=== PATIENT | male | born 1975 | race Caucasian/White ===

== ENCOUNTER 2024-01-04 19:43 | Outpatient (REF) | payer BC, SELFPAY ==
[2024-01-04 20:55] LABS: ALT 46 U/L (16-63); AST 25 U/L (15-37); Albumin 4.3 g/dL (3.4-5.0); Alkaline Phosphatase 51 U/L (46-116); Anion Gap 10.8 mmol/L (3-11); BUN 14 mg/dL (7-18); Bilirubin, Total 0.71 mg/dL (0.2-1.0); CO2 26.2 mmol/L (21.0-32.0); CREATININE 0.9 mg/dL (0.70-1.30); Calcium 9.7 mg/dL (8.5-10.1); Calculated LDL 109 mg/dL (<100); Chloride 106 mmol/L (98-107); Cholesterol 192 mg/dL (<200); Estimated GFR 106.01 (mL/min/1.73m2); Glucose 93 mg/dL (74-106); HDL Cholesterol 57 mg/dL (40-60); Potassium 3.6 mmol/L (3.5-5.1); Sodium 143 mmol/L (136-145); Total Protein 7.7 g/dL (6.4-8.2); Triglyceride 133 mg/dL (<150)
[2024-01-04 21:43] LABS: Hemoglobin A1C 5.1 % (<5.7)
== END 2024-01-04 19:44 | disposition home or self-care (01) ==
LOC: NCHCN 19:43
PROVIDERS: Visit Provider Nurse Practitioner Family
DX: E66.9 Obesity, unspecified (principal); Z13.220 Encounter for screening for lipoid disorders
CPT/HCPCS: 80053; 80061; 83036

== ENCOUNTER 2025-01-09 18:33 | Outpatient (REF) | payer OTHER, SELFPAY ==
[2025-01-09 21:55] LABS: ALT 45 U/L (16-63); AST 24 U/L (15-37); Albumin 4.7 g/dL (3.4-5.0); Alkaline Phosphatase 42 U/L (46-116); Anion Gap 10.0 mmol/L (3-11); BUN 11 mg/dL (7-18); Bilirubin, Total 0.8 mg/dL (0.2-1.0); CO2 29.0 mmol/L (21.0-32.0); Calcium 9.6 mg/dL (8.5-10.1); Calculated LDL 140 mg/dL (<100); Chloride 101 mmol/L (98-107); Cholesterol 220 mg/dL (<200); Estimated GFR 92.84 (mL/min/1.73m2); Glucose 90 mg/dL (74-106); HDL Cholesterol 69 mg/dL (>or=40); Potassium 3.5 mmol/L (3.5-5.1); Sodium 140 mmol/L (136-145); Total Protein 8.3 g/dL (6.4-8.2); Triglyceride 59 mg/dL (<150)
[2025-01-09 22:56] LABS: COMMENT (LAB VIEW ONLY) 33.06 mg/dL; Microalb ug/mg Crea 8.2 ug/mg Cr
[2025-01-10 18:59] LABS: PSA, Screening 0.9 ng/mL (<=2.5)
[2025-01-10 19:41] LABS: HIV-1/2 Ag & Ab Screen Negative (Negative)
[2025-01-10 19:44] LABS: Hepatitis C Ab w Rflx HCV PCR Negative (Negative)
== END 2025-01-09 18:34 | disposition home or self-care (01) ==
LOC: NCHCN 18:33
PROVIDERS: PCP Nurse Practitioner Family; Visit Provider Nurse Practitioner Family
DX: I10 Essential (primary) hypertension (principal); Z11.4 Encounter for screening for human immunodeficiency virus [HIV]; Z12.5 Encounter for screening for malignant neoplasm of prostate; Z13.220 Encounter for screening for lipoid disorders; Z11.59 Encounter for screening for other viral diseases
CPT/HCPCS: 80053; 80061; 84153; 86803; 87389; 82043; 82570